=== PATIENT | male | born 1975 | race Caucasian/White ===

== ENCOUNTER → 2019-07-09 12:58 | Outpatient (CLI) | payer OTHER | END | disposition home or self-care (01) | LOC: D.RAD 12:58 | PROVIDERS: ATTEND Internal Medicine Infectious Disease | DX: A18.01 Tuberculosis of spine (principal) ==

== ENCOUNTER → 2019-09-14 09:32 | Outpatient (CLI) | payer OTHER | END | disposition home or self-care (01) | LOC: D.RAD 09:32 | PROVIDERS: ATTEND Internal Medicine Infectious Disease | DX: A15.0 Tuberculosis of lung (principal) ==